=== PATIENT | female | born 1960 | race Asian ===

== ENCOUNTER → 2018-04-14 09:19 | Outpatient (CLI) | payer OTHER, MEDICAID, SELFPAY ==
[2018-04-14 10:29] LABS: Hemoglobin A1C% w Est Avg Glu 7.4 % (4.0-6.0)
== END ==
PROVIDERS: PCP Family Medicine; Visit Provider Internal Medicine Endocrinology, Diabetes & Metabolism
DX: E11.9 Type 2 diabetes mellitus without complications (principal)
CPT/HCPCS: 36415; 83036

== ENCOUNTER 2018-05-14 11:59 | Emergency (ER) | payer OTHER, MEDICAID, SELFPAY ==
[2018-05-14 12:29] LABS: Appearance Urine UA SL CLOUDY; Bilirubin Urine UA NEGATIVE (NEGATIVE); Color Urine UA YELLOW; Glucose Urine UA 3+ g/dL (Normal); Ketones Urine UA NEGATIVE (NEGATIVE); Leukocyte Esterase Urine UA 1+ (NEGATIVE); Nitrite Urine UA Negative (Negative); Occult Blood Urine UA 3+ (Negative); Protein Urine UA NEGATIVE (Negative); Specific Gravity Urine UA <=1.005 (1.000-1.035); Urobilinogen Urine UA 0.2 E.U./dL (0.2); pH Urine UA 6.5 (4.5-8.0)
[2018-05-14 12:40] LABS: RBC Urine 5-10/HPF (0-5/HPF); Squamous Epithelial Cell Urine 0-1 /HPF; WBC Urine 30-100/HPF (0-5/HPF)
[2018-05-14 12:41] LABS: Bacteria Urine Few (2-10); Culture Indicated Urine Specimen Cultured
--- NOTE | 2018-05-14 14:26 | ED.FEMALEGU ---
HPI - Female Genitourinary <GILL Trejo - Last Filed: 05/14/18 22:18> General Chief complaint: Urogenital-Female Stated complaint: painful urination Time Seen by Provider: 05/14/18 14:51 History of Present Illness HPI Narrative: 57-year-old female here for complaint of having having dysuria with cloudy urine for the past 2 days. She denies any flank pain. She denies any fevers. She does report that she felt like she had some chills. No abdominal pain. Positive p.o. intake. No nausea or vomiting. No other concerns or complaints. MD Complaint: dysuria Related Data Home Medications Medication Instructions Recorded Confirmed tiotropium bromide [Spiriva with 1 puff INH QDAY #0 01/11/18 HandiHaler] dapagliflozin [Farxiga] 5 mg PO #0 03/14/18 Previous Rx's Medication Instructions Recorded Glucose: Home Monitor ea Q DAY #1 01/21/17 albuterol sulfate [Proventil HFA] 2 puff INH Q4HP PRN #1 ea 03/12/17 montelukast [Singulair] 10 mg PO QDAY #90 tab 04/23/17 Glucose: Test Strips str Q DAY #30 07/12/17 Lancet: Device ea #100 09/01/17 omeprazole 20 mg PO QDAYP PRN #30 cap 09/01/17 fluticasone [Flonase Allergy 1 spray INTRANASAL QDAY #1 bot 09/03/17 Relief] mometasone-formoterol [Dulera] 2 puff INH BID #1 ea 01/04/18 lisinopril 10 mg PO QDAY #90 tab 01/11/18 simvastatin 10 mg PO HS #90 tab 01/11/18 cyclobenzaprine 5 - 10 mg OR HSP PRN #30 tab 02/08/18 glipizide 10 mg PO BID #180 tab 02/08/18 hydrocodone-acetaminophen 1 tab PO Q6HP PRN #10 tab 03/14/18 metformin 1,000 mg PO BIDCC #180 mg 04/27/18 duloxetine 30 mg capsule,delayed 30 mg PO BID #60 cap 05/10/18 release linagliptin [Tradjenta] 5 mg OR QDAY #90 mg 05/10/18 nitrofurantoin monohyd/m-cryst 100 mg PO Q12H 7 Days cap 05/14/18 Review of Systems <GILL Trejo - Last Filed: 05/14/18 22:18> Constitutional Denies chills, Denies fever(s), Denies lethargy and Denies weakness Eyes Denies change in vision, Denies eye discharge, Denies irritation and Denies loss of vision ENT Ears, Nose, Mouth, and Throat: Denies change in voice, Denies neck pain and Denies sore throat Cardiovascular Denies chest pain, Denies irregular heart rhythm, Denies lightheadedness, Denies palpitations, Denies dyspnea, Denies dyspnea on exertion and Denies orthopnea Respiratory Denies cough, Denies dyspnea, Denies dyspnea on exertion and Denies wheezing Gastrointestinal Gastrointestinal: Denies abdominal pain, Denies change in bowel habits, Denies diarrhea, Denies nausea and Denies vomiting Genitourinary Reports dysuria Musculoskeletal Denies neck pain Integumentary/Breasts Denies pruritus, Denies erythema, Denies rash and Denies wounds Neurologic Denies loss of vision and Denies weakness Endocrine Denies palpitations Allergic/Immunologic Denies wheezing Exam <GILL Trejo - Last Filed: 05/14/18 22:18> Initial Vital Signs Initial Vital Signs: Vital Signs Pulse Rate 88 05/14/18 14:57 Respiratory Rate 16 05/14/18 14:57 Blood Pressure 124/82 H 05/14/18 14:57 Pulse Oximetry 100 05/14/18 14:57 Const General: cooperative and well developed Nutritional Appearance: well nourished Orientation: alert, awake, oriented x3 and not confused [facility] Mouth: oral mucosae normal and moist mucous membranes Eyes Conjunctivae: conjunctivae normal Sclera: sclerae normal Pupils: PERRL EOM: EOM intact bilaterally Resp Effort & Inspection: normal respiratory effort, able to speak in complete sentences, no respiratory distress and no use of accessory muscles Auscultation: clear to auscultation bilaterally, no rales, no rhonchi and no wheezes Cardio Rate: regular rate Rhythm: regular rhythm Heart Sounds: no click, no gallops, no murmurs and no rubs Pulses: normal peripheral pulses GI Inspection: non-distended Palpation: soft, no hepatosplenomegaly, No guarding, No pulsatile mass and No tender Auscultation: normal bowel sounds General: No CVA tenderness Skin General: no rashes or lesions noted, No jaundice and No petechiae <Catie Bojorquez DO - Last Filed: 05/15/18 09:22> Initial Vital Signs Initial Vital Signs: Vital Signs Pulse Rate 88 05/14/18 14:57 Respiratory Rate 16 05/14/18 14:57 Blood Pressure 124/82 H 05/14/18 14:57 Pulse Oximetry 100 05/14/18 14:57 Course <GILL Trejo - Last Filed: 05/14/18 22:18> Orders Ordered: ED Orders 05/14/18 12:00 Urinalysis and Microscopic Stat Urine Culture Stat Vital Signs - 8 hr 05/14/18 14:57 Pulse Rate 88 Respiratory Rate 16 Blood Pressure [Left Arm] 124/82 H Pulse Oximetry 100 <Catie Bojorquez DO - Last Filed: 05/15/18 09:22> Orders Ordered: ED Orders 05/14/18 12:00 Urinalysis and Microscopic Stat Urine Culture Stat Vital Signs - 8 hr 05/14/18 14:57 Pulse Rate 88 Respiratory Rate 16 Blood Pressure [Left Arm] 124/82 H Pulse Oximetry 100 MDM - Female Genitourinary <GILL Trejo - Last Filed: 05/14/18 22:18> Lab Data Lab Results 05/14/18 Range/Units 12:00 Urine Color Yellow Urine Appearance Sl cloudy Urine pH 6.5 (4.5-8.0) Ur Specific [place] <=1.005 (1.000-1.035) Urine Protein Negative (Negative) Urine Glucose (UA) 3+ (Normal) g/dL Urine Ketones Negative (NEGATIVE) Urine Occult Blood 3+ H (Negative) Urine Nitrate Negative (Negative) Urine Bilirubin Negative (NEGATIVE) Urine Urobilinogen 0.2 (0.2) E.U./dL Ur Leukocyte Esterase 1+ H (NEGATIVE) Urine RBC 5-10/hpf H (0-5/HPF) Urine WBC 30-100/hpf H (0-5/HPF) Ur Squamous Epith Cells 0-1 /hpf Urine Bacteria Few (2-10) H (None) Ur Culture Indicated? Specimen cultured Micro UA Comment Not Reportable MDM Narrative Medical decision making narrative: Urinalysis indicates urinary tract infection. She is placed on a Macrobid and also Pyridium. Plenty of fluids. Follow up with primary care provider later this week. For any worsening symptoms return to the emergency room. <Catie Bojorquez DO - Last Filed: 05/15/18 09:22> Lab Data Lab Results 05/14/18 Range/Units 12:00 Urine Color Yellow Urine Appearance Sl cloudy Urine pH 6.5 (4.5-8.0) Ur Specific [place] <=1.005 (1.000-1.035) Urine Protein Negative (Negative) Urine Glucose (UA) 3+ (Normal) g/dL Urine Ketones Negative (NEGATIVE) Urine Occult Blood 3+ H (Negative) Urine Nitrate Negative (Negative) Urine Bilirubin Negative (NEGATIVE) Urine Urobilinogen 0.2 (0.2) E.U./dL Ur Leukocyte Esterase 1+ H (NEGATIVE) Urine RBC 5-10/hpf H (0-5/HPF) Urine WBC 30-100/hpf H (0-5/HPF) Ur Squamous Epith Cells 0-1 /hpf Urine Bacteria Few (2-10) H (None) Ur Culture Indicated? Specimen cultured Micro UA Comment Not Reportable Discharge Plan Departure Patient Disposition: Home, Self-Care Clinical Impression: Urinary tract infection Discharge Date/Time: 05/14/18 15:01 Interventions: ED Discharge Assessment Last Done: 05/14/18 15:01 Instructions: DI for Urinary Tract Infection (UTI) Activity Restrictions/Additional Instructions: Urinalysis indicates urinary tract infection. You have been placed on antibiotic called Macrobid use as directed. You have also been placed on Pyridium to help with discomfort with urination use as directed. Be advised it will make your urine orange. Plenty of fluids. Follow up with primary care provider. Return emergency room for any worsening symptoms. Prescriptions: New nitrofurantoin monohyd/m-cryst 100 mg capsule 100 mg PO Q12H 7 Days RF: 0 No Action Glucose: Home Monitor Q DAY Qty: 1 RF: 0 albuterol sulfate [Proventil HFA] 90 MCG/PUFF HFA aerosol inhaler 2 puff INH Q4HP PRNQty: 1 RF: 2 montelukast [Singulair] 10 MG tablet 10 mg PO QDAY Qty: 90 RF: 2 Glucose: Test Strips Q DAY Qty: 30 RF: 9 omeprazole 20 MG capsule,delayed release(DR/EC) 20 mg PO QDAYP PRNQty: 30 RF: 1 Lancet: Device Qty: 100 RF: 12 fluticasone [Flonase Allergy Relief] 9.9 ML spray,suspension 1 spray Intranasal QDAY Qty: 1 RF: 0 mometasone-formoterol [Dulera] 200 MCG/5 MCG HFA aerosol inhaler 2 puff INH BID Qty: 1 RF: 1 tiotropium bromide [Spiriva with HandiHaler] 18 MCG capsule, w/inhalation device 1 puff INH QDAY Qty: 0 RF: 0 lisinopril 10 MG tablet 10 mg PO QDAY Qty: 90 RF: 2 simvastatin 10 MG tablet 10 mg PO HS Qty: 90 RF: 2 cyclobenzaprine 10 MG tablet 5 - 10 mg OR HSP PRNQty: 30 RF: 0 glipizide 10 MG tablet 10 mg PO BID Qty: 180 RF: 4 dapagliflozin [Farxiga] 5 MG tablet 5 mg PO Qty: 0 RF: 0 hydrocodone-acetaminophen 5 MG/325 MG tablet 1 tab PO Q6HP PRNQty: 10 RF: 0 metformin 1,000 mg tablet 1,000 mg PO BIDCC Qty: 180 RF: 2 duloxetine 30 mg capsule,delayed release(DR/EC) 30 mg PO BID Qty: 60 RF: 0 linagliptin [Tradjenta] 5 mg tablet 5 mg OR QDAY Qty: 90 RF: 2 Referrals: Rachel Barajas DO [Primary Care Provider] - <Catie Bojorquez DO - Last Filed: 05/15/18 09:22> Cosign ED Attending Trueature Attestation: I was immediately available in the department for consultation. Documentation has been reviewed. I agree with assessment and plan.
[2018-05-14 14:57] VITALS: BP 124/82; PULSE 88; RESP 16; O2SAT 100
== END 2018-05-14 15:01 | disposition home or self-care (01) ==
PROVIDERS: Emergency Provider Nurse Practitioner Family; Family Provider Family Medicine; PCP Family Medicine
DX: N39.0 Urinary tract infection, site not specified (principal)
CPT/HCPCS: 81001; 87086; 99282

== ENCOUNTER 2018-05-27 11:45 | Outpatient (RCR) | payer OTHER, MEDICAID, SELFPAY ==
--- NOTE | 2018-04-06 15:14 | PT.OTRE ---
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) Difficulty in walking, not elsewhere classified (04/06/18) Surgical History Status post breast biopsy Provider Visit Care Team Role Provider Type Rachel Barajas DO Family Provider Physician Primary Care Provider Specialty: Family Practice Address: [address] [place] [address], [id number] Email: [email or web address] Jurgen Howard DPM Attending Provider Non-Staff Specialty: Podiatry Address: [address] [place] [address], [phone] Email: Physical Therapy Re-Evaluation PT-OP-A Visit Information Start: 04/06/18 14:56 Freq: Status: Active Protocol: Document 04/06/18 14:59 TMS (Rec: 04/06/18 15:14 TMS [email or web address]) Out-Patient Physical Therapy Visit Information Visit Information Visit Type Re-Evaluation Visit Start Time 11:00 Visit Stop Time 11:45 Total Visit Minutes 45 Visit Number Number of MAIL CARRIER Visits 0 PT-OP-C Subjective Start: 04/06/18 14:56 Freq: Status: Active Protocol: Document 04/06/18 14:59 TMS (Rec: 04/06/18 15:14 TMS [email or web address]) OP-PT Subjective Patient Comments Patient Comments Pt. reports she's not having right foot pain because she doesn't walk very much, main complaint is left shoulder pain. PT-OP-T Assessment and Plan Start: 04/06/18 14:56 Freq: Status: Active Protocol: Document 04/06/18 14:59 TMS (Rec: 04/06/18 15:14 TMS [email or web address]) Physical Therapy Assessment Assessment Summary Assessment Pt. tolerated lower extremity exercises well, kept left arm guarded during treatment.
--- NOTE | 2018-04-07 11:27 | PT.OTN ---
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) Difficulty in walking, not elsewhere classified (04/06/18) Physical Therapy Treatment Note PT-OP-A Visit Information Start: 04/06/18 14:56 Freq: Status: Active Protocol: Document 04/06/18 14:59 TMS (Rec: 04/06/18 15:14 TMS [email or web address]) Out-Patient Physical Therapy Visit Information Visit Information Visit Type Re-Evaluation Visit Start Time 11:00 Visit Stop Time 11:45 Total Visit Minutes 45 Visit Number Number of EMERY WHEEL MOLDER Visits 0 PT-OP-C Subjective Start: 04/06/18 14:56 Freq: Status: Active Protocol: Document 04/06/18 14:59 TMS (Rec: 04/06/18 15:14 TMS [email or web address]) OP-PT Subjective Patient Comments Patient Comments Pt. reports she's not having right foot pain because she doesn't walk very much, main complaint is left shoulder pain. PT-OP-S Aquatic Treatment Start: 04/06/18 14:56 Freq: Status: Active Protocol: Document 04/06/18 14:59 TMS (Rec: 04/06/18 15:14 TMS [email or web address]) Aquatics Treatment Pool Entry/Exit Pool Entry/Exit Method Stairs Assistance Independent Water Walking Marching Water Level Waist Level Walking Equipment Resistance Fins Level of Assistance Standby Assistance Sideways Water Level Waist Level Walking Equipment Resistance Fins Level of Assistance Standby Assistance Forwards Water Level Waist Level Walking Equipment Resistance Fins Level of Assistance Standby Assistance Lower Extremity Exercises 5 Details Hip Circles Body Position Standing Water Level Waist Level Equipment Resistance Fins Reps/Duration x15 4 Details Hip Flexion Body Position Standing Water Level Waist Level Reps/Duration x15 3 Details Hip Abduction Body Position Standing Water Level Waist Level Equipment Resistance Fins Reps/Duration x15 2 Details Squats Body Position Standing Water Level Waist Level Equipment Resistance Fins Reps/Duration x15 1 Details Heel/toe raises Body Position Standing Equipment Resistance Fins Reps/Duration x15 Upper Extremity Exercises 1 Details Shoulder shrugs/rolls Body Position Standing Embarrass Activities Embarrass Activities Bicycle Equipment Belt Duration 15 minutes PT-OP-T Assessment and Plan Start: 04/06/18 14:56 Freq: Status: Active Protocol: Document 04/06/18 14:59 TMS (Rec: 04/06/18 15:14 [facility] [email or web address]) Physical Therapy Assessment Assessment Summary Assessment Pt. tolerated lower extremity exercises well, kept left arm guarded during treatment.
--- NOTE | 2018-04-08 09:48 | PT.OPPOC ---
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) Difficulty in walking, not elsewhere classified (04/06/18) Provider Visit Care Team Role Provider Type Rachel Barajas DO Family Provider Physician Primary Care Provider Specialty: Family Practice Address: [address] [place] [address], [phone] Email: [email or web address] Jurgen Howard DPM Attending Provider Non-Staff Specialty: Podiatry Address: [address] [place] [address], [phone] Email: Plan Of Care PT-OP-T Assessment and Plan Start: 04/06/18 14:56 Freq: Status: Active Protocol: Document 04/08/18 09:37 SAK (Rec: 04/08/18 09:48 SAK [id number]) Physical Therapy Assessment Rehab Potential Rehabilitation Potential Good Evaluation Complexity Number of Personal Factors/Comorbidities 3 or More Number of Body Systems Impaired 3 Clinical Presentation at Evaluation Evolving Impairments Impairments Functional Activities Gait Pain ROM Strength Other Impairments 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 Goals Five Impairment functional limiting shoulder pain Short Term Goal (STG) evaluate left shoulder; begin treatment as indicated STG Duration 2 wks Certified Residential Medication Aide Goal (LTG) Patient to return to full functional use of left UE with minimal to no pain LTG Duration 8 wks Four Impairment Functional mobility: LEFS Short Term Goal (STG) Improve LEFS by 10% STG Duration 4 wks Certified Residential Medication Aide Goal (LTG) Improve LEFS to 75% LTG Duration 8 wks Three Impairment Antalgic gait Short Term Goal (STG) Patient able to ambulate with minimal to no limp using device as indicated STG Duration 4 wks Certified Residential Medication Aide Goal (LTG) Patient able to ambulate without limp LTG Duration 8 wks Two Impairment decreased flexibility in hamstrings, gastrocnemius, soleus, & plantar fasci Short Term Goal (STG) Improve flexibility in all above areas to minimal deficits STG Duration 4 wks Residential Goal (LTG) Patient to be independent with HEP for flexibility LTG Duration 8 wks One Impairment pain bilateral feet limiting standing, walking, usual activities Short Term Goal (STG) decrease pain 50% STG Duration 4 wks Residential Goal (LTG) Patient able to resume normal activities with minimal to no incrase in pain. LTG Duration 8 wks. Progress Towards Goals Progress Towards Goals Progressing Toward Goals Assessment Summary Assessment Patient appears to benefiting most from aquatic therapy for foot pain and mobility limitations. Feel aquatic therapy may be appropriate also for patient's shoulder pain and dysfunction, but will assess at next visit. Physical Therapy Plan Frequency and Duration Frequency of Treatment 2x/Week Duration of Treatment 8 Plan of Care Start Date 04/06/18 Plan of Care End Date 06/01/18 Therapeutic Interventions Therapeutic Interventions Aquatic Therapy Gait Training Home Exercise Program Manual Therapy Patient/Caregiver Education Self-Care/Home Management Therapeutic Activities Therapeutic Exercises Modalities Cold Pack/Ice Massage Electric Stimulation Iontophoresis Ultrasound Next Visit Focus/Plan Next Visit Plan Evaluate left shoulder pain and initiate treatment as indicated. Continue aquatic PT for foot pain Plan of Care Dates Plan of Care Start Date 04/06/18 Plan of Care End Date 06/01/18 Please Sign and Return: I have reviewed this Plan of Care and certify that the skilled therapy services above are required to meet the patient???s needs. Physician Signature Date Printed Name and Credentials
--- NOTE | 2018-04-12 13:01 | PT.OTN ---
Current Diagnoses Stiffness of unspecified joint, not elsewhere classified (04/11/18) Plantar fascial fibromatosis (04/11/18) Difficulty in walking, not elsewhere classified (04/11/18) Physical Therapy Treatment Note PT-OP-A Visit Information Start: 04/06/18 14:56 Freq: Status: Active Protocol: Document 04/12/18 10:21 SAK (Rec: 04/12/18 10:30 [facility] [id number]) Out-Patient Physical Therapy Visit Information Visit Information Visit Type Treatment Note Visit Start Time 11:00 Visit Stop Time 11:45 Total Visit Minutes 45 Visit Number Number of STOCK PLAN ADMINISTRATOR Visits 0 PT-OP-C Subjective Start: 04/06/18 14:56 Freq: Status: Active Protocol: Document 04/11/18 11:00 SAK (Rec: 04/12/18 10:30 [facility] [id number]) OP-PT Subjective Patient Comments Patient Comments Reports difficulty doing usual activities due to left shoulder pain, is getting a prescription from physician for evaluation and treatment of left shoulder pain. OP-PT Pain Assessment Location Left Shoulder Intensity 8 Scale Used Numeric (1 - 10) Description Aching Pinching Sharp Shooting Pain Aggravating Factors ADL's Activity Pain Alleviating Factors None Pain Behaviors Pain Behaviors Facial Grimacing Guarding [place] PT-OP-E Functional Tests Start: 04/06/18 14:56 Freq: Status: Active Protocol: Document 04/11/18 11:00 SAK (Rec: 04/12/18 10:30 [facility] [id number]) Functional Tests Apley's Scratch Test Action 1: The subject is instructed to touch the opposite shoulder with his/her hand. This motion checks Glenohumeral adduction, internal rotation , horizontal adduction and scapular protraction Action 2: The subject is instructed to place his/her arm overhead and reach behind the neck to touch his/her upper back. This motion checks Glenohumeral abduction, external rotation and scapular upward rotation and elevation. Action 3: The subject puts his/her hand on the lower back and reaches upward as far as possible. This motion checks glenohumeral adduction, internal rotation and scapular retraction with downward rotation Action 1- Left front of shoulder Action 1- Right back of shoulder Action 2- Left unable Action 2- Right T2 Action 3- Left buttock Action 3- Right T7 PT-OP-K Range of Motion Start: 04/06/18 14:56 Freq: Status: Active Protocol: Document 04/11/18 11:00 SAK (Rec: 04/12/18 10:30 [facility] [id number]) Cervical Spine Range of Motion Cervical Spine Active ROM Limitations Pain Comments moderately limited all motions Shoulder Goniometric Range of Motion Shoulder Measured in Degrees Left Shoulder ROM WFL No Flexion 85 Extension 5 Abduction 55 External Rotation at 45 degrees 20 Abduction Internal Rotation 15 Internal Rotation Behind Back (text) to buttock Right Shoulder ROM WFL Yes Shoulder ROM Limitations Shoulder ROM Limitations Pain Elbow/Forearm Range of Motion Elbow/Forearm Measured in Degrees Active Elbow/Forearm ROM WFL Yes PT-OP-M Strength Start: 04/06/18 14:56 Freq: Status: Active Protocol: Document 04/11/18 11:00 SAK (Rec: 04/12/18 12:01 [facility] [id number]) Shoulder Strength Shoulder Manual Muscle Testing Left Reason Not Measured Pain Right Reason Not Measured WFL PT-OP-S Aquatic Treatment Start: 04/06/18 14:56 Freq: Status: Active Protocol: Document 04/11/18 11:02 SAK (Rec: 04/12/18 12:04 [facility] [id number]) Aquatics Treatment Pool Entry/Exit Pool Entry/Exit Method Stairs Assistance Independent Water Walking Backwards Water Level Chest Level Comments with gentle reverse breastroke UE's Marching Water Level Chest Level Comments with gentle breastroke UE's Sideways Water Level Chest Level Comments with gentle shoulder ab/ad Forwards Water Level Chest Level Comments with gentle breastroke UE's Upper Extremity Exercises 5 Details shoulder flex/ext Water Level Chest Level Reps/Duration 10x 4 Details shoulder IR/ER Water Level Chest Level Reps/Duration 10x 3 Details UE circles Water Level Chest Level Reps/Duration 10x 2 Details shoulder hor ab/ad 1 Details Shoulder shrugs/rolls Body Position Standing Reps/Duration 10x Manual Techniques Bad Ragaz supine with yellow neck float, LE floats for gentle Aquatic Massage supine with yellow neck float, LE floats to left GH and scapulothoracic region PT-OP-T Assessment and Plan Start: 04/06/18 14:56 Freq: Status: Active Protocol: Document 04/11/18 11:00 SAK (Rec: 04/12/18 13:01 SAK [id number]) Physical Therapy Assessment Rehab Potential Rehabilitation Potential Good Impairments Impairments Functional Activities Pain ROM Assessment Summary Assessment Patient with fair kenneth for UE aquatic ex; needed frquent cues to ex in pain-free ROM and intensity. Good tolerance for manual aquatiac techniques. Should continue to benefit from aquatic PT for both LE pain and left shoulder pain. May want to also do land-based PT for left shoulder pending results from aquatic PT> Physical Therapy Plan Frequency and Duration Frequency of Treatment 2x/Week Duration of Treatment 8 Plan of Care Start Date 04/06/18 Plan of Care End Date 06/01/18 Therapeutic Interventions Therapeutic Interventions Aquatic Therapy Gait Training Home Exercise Program Manual Therapy Patient/Caregiver Education Self-Care/Home Management Therapeutic Activities Therapeutic Exercises Modalities Cold Pack/Ice Massage Electric Stimulation Iontophoresis Ultrasound Next Visit Focus/Plan Next Visit Plan Continue aquatic PT with increased emphasis on left shoulder.
--- NOTE | 2018-04-21 11:59 | PT.OTN ---
Current Diagnoses Stiffness of unspecified joint, not elsewhere classified (04/18/18) Plantar fascial fibromatosis (04/18/18) Difficulty in walking, not elsewhere classified (04/18/18) Physical Therapy Treatment Note PT-OP-A Visit Information Start: 04/06/18 14:56 Freq: Status: Active Protocol: Document 04/18/18 11:00 [facility] (Rec: 04/21/18 11:59 [facility] [id number]) Out-Patient Physical Therapy Visit Information Visit Information Visit Type Treatment Note Visit Start Time 11:00 Visit Stop Time 11:45 Total Visit Minutes 45 Visit Number Number of CURATOR H[employer]IC[employer] MUSEUM Visits 0 PT-OP-C Subjective Start: 04/06/18 14:56 Freq: Status: Active Protocol: Document 04/18/18 11:00 SAK (Rec: 04/21/18 11:59 [facility] [id number]) OP-PT Subjective Patient Comments Patient Comments shoulder pain persists, sl decreased after last session. Reports aquatic PT continues to be helpful for feet. PT-OP-E Functional Tests Start: 04/06/18 14:56 Freq: Status: Active Protocol: Document 04/11/18 11:00 [facility] (Rec: 04/12/18 10:30 [facility] [id number]) Functional Tests Apley's Scratch Test Action 1: The subject is instructed to touch the opposite shoulder with his/her hand. This motion checks Glenohumeral adduction, internal rotation , horizontal adduction and scapular protraction Action 2: The subject is instructed to place his/her arm overhead and reach behind the neck to touch his/her upper back. This motion checks Glenohumeral abduction, external rotation and scapular upward rotation and elevation. Action 3: The subject puts his/her hand on the lower back and reaches upward as far as possible. This motion checks glenohumeral adduction, internal rotation and scapular retraction with downward rotation Action 1- Left front of shoulder Action 1- Right back of shoulder Action 2- Left unable Action 2- Right T2 Action 3- Left buttock Action 3- Right T7 PT-OP-K Range of Motion Start: 04/06/18 14:56 Freq: Status: Active Protocol: Document 04/11/18 11:00 SAK (Rec: 04/12/18 10:30 [facility] [id number]) Cervical Spine Range of Motion Cervical Spine Active ROM Limitations Pain Comments moderately limited all motions Shoulder Goniometric Range of Motion Shoulder Measured in Degrees Left Shoulder ROM WFL No Flexion 85 Extension 5 Abduction 55 External Rotation at 45 degrees 20 Abduction Internal Rotation 15 Internal Rotation Behind Back (text) to buttock Right Shoulder ROM WFL Yes Shoulder ROM Limitations Shoulder ROM Limitations Pain Elbow/Forearm Range of Motion Elbow/Forearm Measured in Degrees Active Elbow/Forearm ROM WFL Yes PT-OP-M Strength Start: 04/06/18 14:56 Freq: Status: Active Protocol: Document 04/11/18 11:00 [facility] (Rec: 04/12/18 12:01 [facility] [id number]) Shoulder Strength Shoulder Manual Muscle Testing Left Reason Not Measured Pain Right Reason Not Measured WFL PT-OP-S Aquatic Treatment Start: 04/06/18 14:56 Freq: Status: Active Protocol: Document 04/18/18 11:00 [facility] (Rec: 04/21/18 11:59 [facility] [id number]) Aquatics Treatment Pool Entry/Exit Pool Entry/Exit Method Stairs Assistance Independent Water Walking Backwards Water Level Chest Level Comments with gentle reverse breastroke UE's Marching Water Level Chest Level Comments with gentle breastroke UE's Sideways Water Level Chest Level Comments with gentle shoulder ab/ad Forwards Water Level Chest Level Comments with gentle breastroke UE's Upper Extremity Exercises 6 Details scap squeeze Body Position Standing Water Level Neck Level Reps/Duration 10x 3 Details UE circles Water Level Chest Level Reps/Duration 10x 2 Details shoulder hor ab/ad 1 Details Shoulder shrugs/rolls Body Position Standing Reps/Duration 10x Spinal Exercises 1 Details upper trap stretch Body Position Standing Reps/Duration 2 [place] Activities [place] Activities Bicycle Other Activities gentle UE use as tolerated Equipment belt Duration 5 Manual Techniques Bad Ragaz supine with yellow neck float, LE floats for gentle Aquatic Massage supine with yellow neck float, LE floats to left GH and scapulothoracic region PT-OP-T Assessment and Plan Start: 04/06/18 14:56 Freq: Status: Active Protocol: Document 04/18/18 11:00 [facility] (Rec: 04/21/18 11:59 [facility] [id number]) Physical Therapy Assessment Assessment Summary Assessment Frequent postural cues and cues to prevent guarding and compensatory movement left UE. Physical Therapy Plan Next Visit Focus/Plan Next Visit Plan Continue PT to address left shoulder pain and dysfunction with aquatic exercise and manual techniques Please Sign and Return: I have reviewed this Plan of Care and certify that the skilled therapy services above are required to meet the patient???s needs. Physician Signature Date Printed Name and Credentials Clinical Instructor Signature Printed Name and Credentials
--- NOTE | 2018-05-09 14:46 | PT.OTN ---
Current Diagnoses Stiffness of unspecified joint, not elsewhere classified (05/09/18) Plantar fascial fibromatosis (05/09/18) Difficulty in walking, not elsewhere classified (05/09/18) Physical Therapy Treatment Note PT-OP-A Visit Information Start: 04/06/18 14:56 Freq: Status: Active Protocol: Document 05/09/18 14:21 [facility] (Rec: 05/09/18 14:46 [facility] [email or web address]) Out-Patient Physical Therapy Visit Information Visit Information Visit Type Treatment Note Visit Start Time 11:00 Visit Stop Time 11:45 Total Visit Minutes 45 Visit Number Number of CONVENTION SERVICES MANAGER Visits 1 PT-OP-C Subjective Start: 04/06/18 14:56 Freq: Status: Active Protocol: Document 05/09/18 14:21 [facility] (Rec: 05/09/18 14:46 [facility] [email or web address]) OP-PT Subjective Patient Comments Patient Comments Pt states aquatic therapy is really helping her and wishes she could come more often. PT-OP-E Functional Tests Start: 04/06/18 14:56 Freq: Status: Active Protocol: Document 04/11/18 11:00 SAK (Rec: 04/12/18 10:30 [facility] [id number]) Functional Tests Apley's Scratch Test Action 1: The subject is instructed to touch the opposite shoulder with his/her hand. This motion checks Glenohumeral adduction, internal rotation , horizontal adduction and scapular protraction Action 2: The subject is instructed to place his/her arm overhead and reach behind the neck to touch his/her upper back. This motion checks Glenohumeral abduction, external rotation and scapular upward rotation and elevation. Action 3: The subject puts his/her hand on the lower back and reaches upward as far as possible. This motion checks glenohumeral adduction, internal rotation and scapular retraction with downward rotation Action 1- Left front of shoulder Action 1- Right back of shoulder Action 2- Left unable Action 2- Right T2 Action 3- Left buttock Action 3- Right T7 PT-OP-K Range of Motion Start: 04/06/18 14:56 Freq: Status: Active Protocol: Document 04/11/18 11:00 SAK (Rec: 04/12/18 10:30 [facility] [id number]) Cervical Spine Range of Motion Cervical Spine Active ROM Limitations Pain Comments moderately limited all motions Shoulder Goniometric Range of Motion Shoulder Measured in Degrees Left Shoulder ROM WFL No Flexion 85 Extension 5 Abduction 55 External Rotation at 45 degrees 20 Abduction Internal Rotation 15 Internal Rotation Behind Back (text) to buttock Right Shoulder ROM WFL Yes Shoulder ROM Limitations Shoulder ROM Limitations Pain Elbow/Forearm Range of Motion Elbow/Forearm Measured in Degrees Active Elbow/Forearm ROM WFL Yes PT-OP-M Strength Start: 04/06/18 14:56 Freq: Status: Active Protocol: Document 04/11/18 11:00 SAK (Rec: 04/12/18 12:01 SAK [id number]) Shoulder Strength Shoulder Manual Muscle Testing Left Reason Not Measured Pain Right Reason Not Measured WFL PT-OP-S Aquatic Treatment Start: 04/06/18 14:56 Freq: Status: Active Protocol: Document 05/09/18 14:21 CLB (Rec: 05/09/18 14:46 [facility] [email or web address]) Aquatics Treatment Pool Entry/Exit Pool Entry/Exit Method Stairs Assistance Independent Water Walking Backwards Water Level Chest Level Comments with gentle reverse breaststroke UE's Marching Water Level Chest Level Comments with gentle breaststroke UE's Sideways Water Level Chest Level Comments with gentle shoulder ab/ad Forwards Water Level Chest Level Comments with gentle breaststroke UE's Upper Extremity Exercises 6 Details scap squeeze Body Position Standing Water Level Neck Level Reps/Duration 10x 5 Details shoulder flex/ext Water Level Chest Level Reps/Duration 10x 4 Details shoulder IR/ER Water Level Chest Level Reps/Duration 10x 3 Details UE circles Water Level Chest Level Reps/Duration 10x 2 Details shoulder hor ab/ad Water Level Neck Level Reps/Duration 10x 1 Details Shoulder shrugs/rolls Body Position Standing Reps/Duration 10x Spinal Exercises 1 Details upper trap stretch Body Position Standing Reps/Duration 2 [place] Activities [place] Activities Bicycle Other Activities gentle UE use as tolerated Equipment noodle Duration 15 PT-OP-T Assessment and Plan Start: 04/06/18 14:56 Freq: Status: Active Protocol: Document 05/09/18 14:21 [facility]B (Rec: 05/09/18 14:46 [facility] [id number]) Physical Therapy Assessment Assessment Summary Assessment Pt needs cues for posture and cues to prevent shoulder shrug during UE ther ex. Physical Therapy Plan Frequency and Duration Frequency of Treatment 1x/Week Duration of Treatment 45 Please Sign and Return: I have reviewed this Plan of Care and certify that the skilled therapy services above are required to meet the patient?s needs. Physician Signature Date Printed Name and Credentials Clinical Instructor Signature Printed Name and Credentials
--- NOTE | 2018-05-13 15:01 | PT.OTN ---
Current Diagnoses Stiffness of unspecified joint, not elsewhere classified (05/13/18) Plantar fascial fibromatosis (05/13/18) Difficulty in walking, not elsewhere classified (05/13/18) Physical Therapy Treatment Note PT-OP-A Visit Information Start: 04/06/18 14:56 Freq: Status: Active Protocol: Document 05/13/18 14:52 TMS (Rec: 05/13/18 15:01 TMS [email or web address]) Out-Patient Physical Therapy Visit Information Visit Information Visit Type Treatment Note Visit Start Time 11:45 Visit Stop Time 12:15 Total Visit Minutes 30 Visit Number Number of CLAY ARTIST Visits 2 PT-OP-C Subjective Start: 04/06/18 14:56 Freq: Status: Active Protocol: Document 05/13/18 14:52 TMS (Rec: 05/13/18 15:01 TMS [email or web address]) OP-PT Subjective Patient Comments Patient Comments Pt. arrived for appointment 45 minutes early, had appointment time wrong. States aquatics has helped, left shoulder is less painful. States it's still painful to walk. PT-OP-E Functional Tests Start: 04/06/18 14:56 Freq: Status: Active Protocol: Document 04/11/18 11:00 SAK (Rec: 04/12/18 10:30 [facility] [id number]) Functional Tests Apley's Scratch Test Action 1: The subject is instructed to touch the opposite shoulder with his/her hand. This motion checks Glenohumeral adduction, internal rotation , horizontal adduction and scapular protraction Action 2: The subject is instructed to place his/her arm overhead and reach behind the neck to touch his/her upper back. This motion checks Glenohumeral abduction, external rotation and scapular upward rotation and elevation. Action 3: The subject puts his/her hand on the lower back and reaches upward as far as possible. This motion checks glenohumeral adduction, internal rotation and scapular retraction with downward rotation Action 1- Left front of shoulder Action 1- Right back of shoulder Action 2- Left unable Action 2- Right T2 Action 3- Left buttock Action 3- Right T7 PT-OP-K Range of Motion Start: 04/06/18 14:56 Freq: Status: Active Protocol: Document 04/11/18 11:00 SAK (Rec: 04/12/18 10:30 [facility] [id number]) Cervical Spine Range of Motion Cervical Spine Active ROM Limitations Pain Comments moderately limited all motions Shoulder Goniometric Range of Motion Shoulder Measured in Degrees Left Shoulder ROM WFL No Flexion 85 Extension 5 Abduction 55 External Rotation at 45 degrees 20 Abduction Internal Rotation 15 Internal Rotation Behind Back (text) to buttock Right Shoulder ROM WFL Yes Shoulder ROM Limitations Shoulder ROM Limitations Pain Elbow/Forearm Range of Motion Elbow/Forearm Measured in Degrees Active Elbow/Forearm ROM WFL Yes PT-OP-M Strength Start: 04/06/18 14:56 Freq: Status: Active Protocol: Document 04/11/18 11:00 SAK (Rec: 04/12/18 12:01 [facility] [id number]) Shoulder Strength Shoulder Manual Muscle Testing Left Reason Not Measured Pain Right Reason Not Measured WFL PT-OP-S Aquatic Treatment Start: 04/06/18 14:56 Freq: Status: Active Protocol: Document 05/13/18 14:52 TMS (Rec: 05/13/18 15:01 TMS [email or web address]) Aquatics Treatment Pool Entry/Exit Pool Entry/Exit Method Stairs Assistance Independent Water Walking [place] March Water Level Chest Level Walking Equipment Resistance Fins Marching Water Level Chest Level Walking Equipment Resistance Fins Comments with gentle breastroke UE's Sideways Water Level Chest Level Comments with gentle shoulder ab/ad Lower Extremity Exercises 5 Details Heel/toe Body Position Standing Water Level Chest Level Equipment Resistance Fins Reps/Duration x 15 reps 4 Details Squats Body Position Standing Water Level Chest Level Equipment Resistance Fins Reps/Duration x 15 reps 3 Details Hip flexio/extension Body Position Standing Water Level Chest Level Equipment Resistance Fins 2 Details Hip Abduction Body Position Standing Water Level Chest Level Equipment Resistance Fins [place] Activities [place] Activities Bicycle Other Activities gentle UE use as tolerated Equipment noodle Duration 15 PT-OP-T Assessment and Plan Start: 04/06/18 14:56 Freq: Status: Active Protocol: Document 05/13/18 14:52 TMS (Rec: 05/13/18 15:01 TMS [email or web address]) Physical Therapy Assessment Assessment Summary Assessment Treatment limited to 30 minutes secondary had already been in water for 45 minutes. Pt. did U.E. exercises independently before appointment started. Physical Therapy Plan Frequency and Duration Frequency of Treatment 1x/Week Next Visit Focus/Plan Next Visit Plan Continue PT to address left shoulder pain and dysfunction with aquatic exercise and manual techniques Please Sign and Return: I have reviewed this Plan of Care and certify that the skilled therapy services above are required to meet the patient?s needs. Physician Signature Date Printed Name and Credentials Clinical Instructor Signature Printed Name and Credentials
--- NOTE | 2018-05-16 16:25 | PT.OTN ---
Current Diagnoses Stiffness of unspecified joint, not elsewhere classified (05/16/18) Plantar fascial fibromatosis (05/16/18) Difficulty in walking, not elsewhere classified (05/16/18) Physical Therapy Treatment Note PT-OP-A Visit Information Start: 04/06/18 14:56 Freq: Status: Active Protocol: Document 05/16/18 16:13 CLB (Rec: 05/16/18 16:24 CLB [email or web address]) Out-Patient Physical Therapy Visit Information Visit Information Visit Start Time 13:00 Visit Stop Time 13:45 Total Visit Minutes 45 Visit Number 23 Number of RAILS DEVELOPER Visits 3 PT-OP-C Subjective Start: 04/06/18 14:56 Freq: Status: Active Protocol: Document 05/16/18 16:13 CLB (Rec: 05/16/18 16:24 CLB [email or web address]) OP-PT Subjective Patient Comments Patient Comments Pt stated she felt a little dizzy and nauseous today due to antibiotic she is taking. PT-OP-E Functional Tests Start: 04/06/18 14:56 Freq: Status: Active Protocol: Document 04/11/18 11:00 SAK (Rec: 04/12/18 10:30 SAK [id number]) Functional Tests Apley's Scratch Test Action 1: The subject is instructed to touch the opposite shoulder with his/her hand. This motion checks Glenohumeral adduction, internal rotation , horizontal adduction and scapular protraction Action 2: The subject is instructed to place his/her arm overhead and reach behind the neck to touch his/her upper back. This motion checks Glenohumeral abduction, external rotation and scapular upward rotation and elevation. Action 3: The subject puts his/her hand on the lower back and reaches upward as far as possible. This motion checks glenohumeral adduction, internal rotation and scapular retraction with downward rotation Action 1- Left front of shoulder Action 1- Right back of shoulder Action 2- Left unable Action 2- Right T2 Action 3- Left buttock Action 3- Right T7 PT-OP-K Range of Motion Start: 04/06/18 14:56 Freq: Status: Active Protocol: Document 04/11/18 11:00 SAK (Rec: 04/12/18 10:30 SAK [id number]) Cervical Spine Range of Motion Cervical Spine Active ROM Limitations Pain Comments moderately limited all motions Shoulder Goniometric Range of Motion Shoulder Measured in Degrees Left Shoulder ROM WFL No Flexion 85 Extension 5 Abduction 55 External Rotation at 45 degrees 20 Abduction Internal Rotation 15 Internal Rotation Behind Back (text) to buttock Right Shoulder ROM WFL Yes Shoulder ROM Limitations Shoulder ROM Limitations Pain Elbow/Forearm Range of Motion Elbow/Forearm Measured in Degrees Active Elbow/Forearm ROM WFL Yes PT-OP-M Strength Start: 04/06/18 14:56 Freq: Status: Active Protocol: Document 04/11/18 11:00 SAK (Rec: 04/12/18 12:01 SAK [id number]) Shoulder Strength Shoulder Manual Muscle Testing Left Reason Not Measured Pain Right Reason Not Measured WFL PT-OP-S Aquatic Treatment Start: 04/06/18 14:56 Freq: Status: Active Protocol: Document 05/16/18 16:13 CLB (Rec: 05/16/18 16:24 CLB [email or web address]) Aquatics Treatment Pool Entry/Exit Pool Entry/Exit Method Stairs Assistance Independent Water Walking Backwards Water Level Chest Level Comments with gentle reverse breastroke UE's Marching Water Level Chest Level Walking Equipment Resistance Fins Sideways Water Level Chest Level Walking Equipment Resistance Fins Comments with gentle shoulder ab/ad Forwards Water Level Chest Level Walking Equipment Resistance Fins Comments with gentle breastroke UE's Lower Extremity Exercises 5 Details Heel/toe Body Position Standing Water Level Chest Level Equipment Resistance Fins Reps/Duration x 15 reps 4 Details Squats Body Position Standing Water Level Chest Level Equipment Resistance Fins Reps/Duration x 15 reps 3 Details Hip flexio/extension Body Position Standing Water Level Chest Level Equipment Resistance Fins 2 Details Hip Abduction Body Position Standing Water Level Chest Level Equipment Resistance Fins Upper Extremity Exercises 5 Details shoulder flex/ext Body Position Standing Water Level Neck Level Equipment open paddle Reps/Duration 10x 2 Details shoulder hor ab/ad Body Position Standing Water Level Neck Level Equipment open paddle Reps/Duration 10x [place] Activities [place] Activities Bicycle Other Activities gentle UE use as tolerated Equipment noodle Duration 15 PT-OP-T Assessment and Plan Start: 04/06/18 14:56 Freq: Status: Active Protocol: Document 05/16/18 16:13 CLB (Rec: 05/16/18 16:24 CLB [email or web address]) Physical Therapy Assessment Assessment Summary Assessment Pt tolerated therapy well today, pt continues to need cues for posture and to prevent gaurding and compensation in shoulders. Physical Therapy Plan Frequency and Duration Frequency of Treatment 1x/Week Duration of Treatment 45 Next Visit Focus/Plan Next Visit Plan Continue PT to address left shoulder pain and dysfunction with aquatic exercise and manual techniques
--- NOTE | 2018-05-23 15:50 | PT.OTN ---
Current Diagnoses Stiffness of unspecified joint, not elsewhere classified (05/23/18) Plantar fascial fibromatosis (05/23/18) Difficulty in walking, not elsewhere classified (05/23/18) Physical Therapy Treatment Note PT-OP-A Visit Information Start: 04/06/18 14:56 Freq: Status: Active Protocol: Document 05/23/18 12:15 CLB (Rec: 05/23/18 15:50 CLB [email or web address]) Out-Patient Physical Therapy Visit Information Visit Information Visit Start Time 12:15 Visit Stop Time 13:00 Total Visit Minutes 45 Visit Number 24 Number of GLAZE HANDLER Visits 4 PT-OP-C Subjective Start: 04/06/18 14:56 Freq: Status: Active Protocol: Document 05/23/18 12:15 CLB (Rec: 05/23/18 15:50 CLB [email or web address]) OP-PT Subjective Patient Comments Patient Comments Pt stated her shoulder is feeling better. PT-OP-E Functional Tests Start: 04/06/18 14:56 Freq: Status: Active Protocol: Document 04/11/18 11:00 SAK (Rec: 04/12/18 10:30 [facility] [id number]) Functional Tests Apley's Scratch Test Action 1: The subject is instructed to touch the opposite shoulder with his/her hand. This motion checks Glenohumeral adduction, internal rotation , horizontal adduction and scapular protraction Action 2: The subject is instructed to place his/her arm overhead and reach behind the neck to touch his/her upper back. This motion checks Glenohumeral abduction, external rotation and scapular upward rotation and elevation. Action 3: The subject puts his/her hand on the lower back and reaches upward as far as possible. This motion checks glenohumeral adduction, internal rotation and scapular retraction with downward rotation Action 1- Left front of shoulder Action 1- Right back of shoulder Action 2- Left unable Action 2- Right T2 Action 3- Left buttock Action 3- Right T7 PT-OP-K Range of Motion Start: 04/06/18 14:56 Freq: Status: Active Protocol: Document 04/11/18 11:00 SAK (Rec: 04/12/18 10:30 SAK [id number]) Cervical Spine Range of Motion Cervical Spine Active ROM Limitations Pain Comments moderately limited all motions Shoulder Goniometric Range of Motion Shoulder Measured in Degrees Left Shoulder ROM WFL No Flexion 85 Extension 5 Abduction 55 External Rotation at 45 degrees 20 Abduction Internal Rotation 15 Internal Rotation Behind Back (text) to buttock Right Shoulder ROM WFL Yes Shoulder ROM Limitations Shoulder ROM Limitations Pain Elbow/Forearm Range of Motion Elbow/Forearm Measured in Degrees Active Elbow/Forearm ROM WFL Yes PT-OP-M Strength Start: 04/06/18 14:56 Freq: Status: Active Protocol: Document 04/11/18 11:00 SAK (Rec: 04/12/18 12:01 SAK [id number]) Shoulder Strength Shoulder Manual Muscle Testing Left Reason Not Measured Pain Right Reason Not Measured WFL PT-OP-S Aquatic Treatment Start: 04/06/18 14:56 Freq: Status: Active Protocol: Document 05/23/18 12:15 CLB (Rec: 05/23/18 15:50 CLB [email or web address]) Aquatics Treatment Pool Entry/Exit Pool Entry/Exit Method Stairs Assistance Independent Water Walking [place] March Water Level Chest Level Walking Equipment Resistance Fins Marching Water Level Chest Level Walking Equipment Resistance Fins Comments with gentle breastroke UE's Sideways Water Level Chest Level Walking Equipment Resistance Fins Comments with gentle shoulder ab/ad Forwards Water Level Chest Level Walking Equipment Resistance Fins Comments with gentle breastroke UE's Lower Extremity Exercises 5 Details Heel/toe Body Position Standing Water Level Chest Level Equipment Resistance Fins Reps/Duration x 15 reps 4 Details Squats Body Position Standing Water Level Chest Level Equipment Resistance Fins Reps/Duration x 15 reps 3 Details Hip flexio/extension Body Position Standing Water Level Chest Level Equipment Resistance Fins 2 Details Hip Abduction Body Position Standing Water Level Chest Level Equipment Resistance Fins Upper Extremity Exercises 6 Details scap squeeze Body Position Standing Water Level Neck Level Reps/Duration 10x 5 Details shoulder flex/ext Body Position Standing Water Level Neck Level Equipment open paddle Reps/Duration 10x 2 Details shoulder hor ab/ad Body Position Standing Water Level Neck Level Equipment open paddle Reps/Duration 10x [place] Activities [place] Activities Bicycle Other Activities gentle UE use as tolerated Equipment noodle Duration 15 PT-OP-T Assessment and Plan Start: 04/06/18 14:56 Freq: Status: Active Protocol: Document 05/23/18 12:15 CLB (Rec: 05/23/18 15:50 CLB [email or web address]) Physical Therapy Assessment Assessment Summary Assessment Pt tolerated therapy well with cues for posture and compensation of UE. Physical Therapy Plan Frequency and Duration Frequency of Treatment 1x/Week Duration of Treatment 45 Next Visit Focus/Plan Next Visit Plan Continue PT to address left shoulder pain and dysfunction with aquatic exercise and manual techniques
--- NOTE | 2018-05-27 16:21 | PT.OTN ---
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) Difficulty in walking, not elsewhere classified (05/27/18) Physical Therapy Treatment Note PT-OP-A Visit Information Start: 04/06/18 14:56 Freq: Status: Active Protocol: Document 05/27/18 12:30 TMS (Rec: 05/27/18 16:21 TMS [email or web address]) Out-Patient Physical Therapy Visit Information Visit Information Visit Type Treatment Note Visit Start Time 11:45 Visit Stop Time 12:30 Total Visit Minutes 45 Visit Number 25 Number of TRAVEL REGISTERED NURSE NICU Visits 5 PT-OP-C Subjective Start: 04/06/18 14:56 Freq: Status: Active Protocol: Document 05/27/18 12:30 TMS (Rec: 05/27/18 16:21 TMS [email or web address]) OP-PT Subjective Patient Comments Patient Comments Pt. states this is her last visit, has a new referral for her shoulder and wrists. Keeps forgetting to call and make an appointment. PT-OP-E Functional Tests Start: 04/06/18 14:56 Freq: Status: Active Protocol: Document 04/11/18 11:00 SAK (Rec: 04/12/18 10:30 [facility] [id number]) Functional Tests Apley's Scratch Test Action 1: The subject is instructed to touch the opposite shoulder with his/her hand. This motion checks Glenohumeral adduction, internal rotation , horizontal adduction and scapular protraction Action 2: The subject is instructed to place his/her arm overhead and reach behind the neck to touch his/her upper back. This motion checks Glenohumeral abduction, external rotation and scapular upward rotation and elevation. Action 3: The subject puts his/her hand on the lower back and reaches upward as far as possible. This motion checks glenohumeral adduction, internal rotation and scapular retraction with downward rotation Action 1- Left front of shoulder Action 1- Right back of shoulder Action 2- Left unable Action 2- Right T2 Action 3- Left buttock Action 3- Right T7 PT-OP-K Range of Motion Start: 04/06/18 14:56 Freq: Status: Active Protocol: Document 04/11/18 11:00 SAK (Rec: 04/12/18 10:30 SAK [id number]) Cervical Spine Range of Motion Cervical Spine Active ROM Limitations Pain Comments moderately limited all motions Shoulder Goniometric Range of Motion Shoulder Measured in Degrees Left Shoulder ROM WFL No Flexion 85 Extension 5 Abduction 55 External Rotation at 45 degrees 20 Abduction Internal Rotation 15 Internal Rotation Behind Back (text) to buttock Right Shoulder ROM WFL Yes Shoulder ROM Limitations Shoulder ROM Limitations Pain Elbow/Forearm Range of Motion Elbow/Forearm Measured in Degrees Active Elbow/Forearm ROM WFL Yes PT-OP-M Strength Start: 04/06/18 14:56 Freq: Status: Active Protocol: Document 04/11/18 11:00 SAK (Rec: 04/12/18 12:01 SAK [id number]) Shoulder Strength Shoulder Manual Muscle Testing Left Reason Not Measured Pain Right Reason Not Measured WFL PT-OP-S Aquatic Treatment Start: 04/06/18 14:56 Freq: Status: Active Protocol: Document 05/27/18 12:30 TMS (Rec: 05/27/18 16:21 TMS [email or web address]) Aquatics Treatment Pool Entry/Exit Pool Entry/Exit Method Stairs Assistance Independent Water Walking [place] March Water Level Chest Level Walking Equipment Resistance Fins Backwards Water Level Chest Level Walking Equipment Resistance Fins Comments with gentle reverse breastroke UE's Marching Water Level Chest Level Walking Equipment Resistance Fins Comments with gentle breastroke UE's Sideways Water Level Chest Level Walking Equipment Resistance Fins Comments with gentle shoulder ab/ad Lower Extremity Exercises 5 Details Heel/toe Body Position Standing Water Level Chest Level Equipment Resistance Fins Reps/Duration x 15 reps 4 Details Squats Body Position Standing Water Level Chest Level Equipment Resistance Fins Reps/Duration x 15 reps 3 Details Hip flexio/extension Body Position Standing Water Level Chest Level Equipment Resistance Fins 2 Details Hip Abduction Body Position Standing Water Level Chest Level Equipment Resistance Fins Upper Extremity Exercises 6 Details scap squeeze Body Position Standing Water Level Neck Level Reps/Duration 10x 4 Details shoulder IR/ER Water Level Chest Level Reps/Duration 10x 3 Details UE circles Water Level Chest Level Reps/Duration 10x 1 Details Shoulder shrugs/rolls Body Position Standing Reps/Duration 10x [place] Activities [place] Activities Bicycle Other Activities gentle UE use as tolerated Equipment noodle Duration 15 minutes PT-OP-T Assessment and Plan Start: 04/06/18 14:56 Freq: Status: Active Protocol: Document 05/27/18 12:30 TMS (Rec: 05/27/18 16:21 TMS [email or web address]) Physical Therapy Assessment Assessment Summary Assessment Pt. complained of left shoulder pain with shoulder circles, reminded to keep ROM within tolerance. Encouraged pt. to call and make appointment to continue with left shoulder and wrist therapy. Physical Therapy Plan Next Visit Focus/Plan Next Visit Plan Pt. to call and schedule appointment for bilateral wrist and continue with left shoulder rehab.
--- NOTE | 2018-09-01 08:36 | PT.OPDS ---
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) Difficulty in walking, not elsewhere classified (05/27/18) Provider Visit Care Team Role Provider Type Rachel Barajas DO Family Provider Physician Primary Care Provider Specialty: Family Practice Address: [address] [place] [address], [id number] Email: [email or web address] Jurgen Howard DPM Attending Provider Non-Staff Specialty: Podiatry Address: [address] [place] [address], [phone] Email: Visit Number Visit Number 25 Discharge Summary PT-OP-C Subjective Start: 04/06/18 14:56 Freq: Status: Active Protocol: Document 05/27/18 12:30 TMS (Rec: 05/27/18 16:21 TMS [email or web address]) OP-PT Subjective Patient Comments Patient Comments Pt. states this is her last visit, has a new referral for her shoulder and wrists. Keeps forgetting to call and make an appointment. PT-OP-E Functional Tests Start: 04/06/18 14:56 Freq: Status: Active Protocol: Document 04/11/18 11:00 SAK (Rec: 04/12/18 10:30 SAK [id number]) Functional Tests Apley's Scratch Test Action 1: The subject is instructed to touch the opposite shoulder with his/her hand. This motion checks Glenohumeral adduction, internal rotation , horizontal adduction and scapular protraction Action 2: The subject is instructed to place his/her arm overhead and reach behind the neck to touch his/her upper back. This motion checks Glenohumeral abduction, external rotation and scapular upward rotation and elevation. Action 3: The subject puts his/her hand on the lower back and reaches upward as far as possible. This motion checks glenohumeral adduction, internal rotation and scapular retraction with downward rotation Action 1- Left front of shoulder Action 1- Right back of shoulder Action 2- Left unable Action 2- Right T2 Action 3- Left buttock Action 3- Right T7 PT-OP-K Range of Motion Start: 04/06/18 14:56 Freq: Status: Active Protocol: Document 04/11/18 11:00 [facility] (Rec: 04/12/18 10:30 [facility] [id number]) Cervical Spine Range of Motion Cervical Spine Active ROM Limitations Pain Comments moderately limited all motions Shoulder Goniometric Range of Motion Shoulder Measured in Degrees Left Shoulder ROM WFL No Flexion 85 Extension 5 Abduction 55 External Rotation at 45 degrees 20 Abduction Internal Rotation 15 Internal Rotation Behind Back (text) to buttock Right Shoulder ROM WFL Yes Shoulder ROM Limitations Shoulder ROM Limitations Pain Elbow/Forearm Range of Motion Elbow/Forearm Measured in Degrees Active Elbow/Forearm ROM WFL Yes PT-OP-M Strength Start: 04/06/18 14:56 Freq: Status: Active Protocol: Document 04/11/18 11:00 [facility] (Rec: 04/12/18 12:01 [facility] [id number]) Shoulder Strength Shoulder Manual Muscle Testing Left Reason Not Measured Pain Right Reason Not Measured WFL PT-OP-T Assessment and Plan Start: 04/06/18 14:56 Freq: Status: Active Protocol: Document 09/01/18 08:34 [facility] (Rec: 09/01/18 08:36 [facility] [id number]) Physical Therapy Plan Discharge Physical Therapy Discharge Reasons Patient Request Discharge Comments Patient requested discharge at this time due to schedule difficulties, requested HEP for shoulders; sent today. Unable to do formal reassessment due to phone request, no final appointment. Patient may benefit from PT in the future when her schedule allows.
== END 2018-11-11 09:46 ==
LOC: PHYS 11:45
PROVIDERS: Family Provider Family Medicine; PCP Family Medicine; Visit Provider Podiatrist Foot & Ankle Surgery
DX: M72.2 Plantar fascial fibromatosis (principal); R26.2 Difficulty in walking, not elsewhere classified; M25.60 Stiffness of unspecified joint, not elsewhere classified
CPT/HCPCS: 97113

== ENCOUNTER 2018-06-23 11:50 | Day surgery (SDC) | payer OTHER, MEDICAID, SELFPAY ==
[2018-06-20 08:35] VITALS: BMI 25.9
[2018-06-23] VITALS (7 sets, daily range): BP systolic 105–119; BP diastolic 69–84; PULSE 89–103; RESP 13–21; TEMP 36.2–36.9; O2SAT 93–97; BMI 26.1
--- NOTE | 2018-06-23 13:19 | PM.PREOP ---
Pre-operative Note Interval Note Pre-op Check: Yes History & Physical Reviewed by Physician Changes: No
--- NOTE | 2018-06-23 13:39 | PM.OP.1 ---
Operative Date/Time/Diagnoses Date of procedure: 06/23/18 Time of procedure: 13:39 Pre-op diagnosis: Right carpal tunnel Post-op diagnosis: same Procedure & Clinicians Procedure: Right carpal tunnel release Same procedure as scheduled: Yes Indications: Right carpal tunnel Surgeon: Gilberto Dunn Click Yes if Unassisted: Yes Anesthesia Type: General Operative Notes Findings: Compression of the median nerve at the carpal tunnel. Closure Type: primary Specimen(s): none sent Estimated Blood Loss (mL): 0 Blood products transfused: none Tourniquet time (min): 10 Procedure in detail: On date of service, the patient was met in the holding area. Patients operative site was signed and witnessed by the OR staff. The surgery was once again discussed with the patient, and any remaining questions they had were answered fully. Patient was taken back to the operating theater and placed on the operating table in a supine position. Great care was taken to ensure that all bony prominences were carefully padded. A well-padded tourniquet was placed up along the upper extremity. A timeout was performed to verify patient's name, procedure, and operative site. The arm was then prepped and draped in the normal sterile fashion. A 15 blade was used to incise through skin In the center of the palm. Pickups and tenotomy scissors were used to dissect down until the palmar fascia was visualized. The palmar fascia was then sharply incised using a 15 blade. This gave us good visualization of the carpal ligament. A small opening was made into the carpal ligament, and a curved hemostat was placed into that opening. A 15 blade was then used to sharply incise the carpal ligament with the structures beneath being protected by the hemostat. Pickups and Metzenbaum scissors were used to complete the decompression both distally and proximally. This provided a complete decompression of the median nerve. The wound was then irrigated and closed with nylon. The hand was then cleaned, dried, and dressed. Patient was taken to the PACU in stable condition. Complications: none Condition: stable Disposition: PACU
[2018-06-23] MEDS: CEFAZOLIN 2 GM/100 ML FROZ.PIGGY IV (13:45)
[2018-06-23] MEDS: BUPIVACAINE 0.5% W/ EPI (PF) VIAL 30 ML INJ (14:00)
--- NOTE | 2018-06-23 14:47 | SUR.PHASEII ---
PT ARRIVED TO OPD IN STABLE CONDITION, VSS. PT SITTING UP IN BED WITH EYES CLOSED, EASILY AROUSABLE TO VOICE. IV SITE CLEAR AND INFUSING WITHOUT DIFFICULTLY. DRSG TO SURGICAL HAND C/D/I. PT REPORTS DULL SENSTATION RELATED TO LOCAL DONE BY DR. WILLSON, +STRENGTH, CAP REFILL WNL. PT DENIES ANY PAIN/DISCOMFORT OR NAUSEA. PT TOLERATING ORAL INTAKE WITHOUT ANY DIFFICULTLY. PT AWAITING ARRIVAL OF AT THIS TIME. BED IN LOWEST POSITION AND CALL LIGHT GIVEN TO PT. PT APPEARS COMFORTABLE AT THIS TIME.
--- NOTE | 2018-06-23 15:09 | SUR.PHASEII ---
IV DC'D AND INTACT. PT TOLERATED WELL.
== END 2018-06-23 15:18 | disposition home or self-care (01) ==
PROVIDERS: Family Provider Family Medicine; PCP Family Medicine; Visit Provider Orthopaedic Surgery
PROC: (CPT 64721; principal; 2018-06-23 13:00)
DX: G56.01 Carpal tunnel syndrome, right upper limb (principal); E11.9 Type 2 diabetes mellitus without complications; I10 Essential (primary) hypertension; M79.7 Fibromyalgia; J45.909 Unspecified asthma, uncomplicated; Z79.84 Long term (current) use of oral hypoglycemic drugs
CPT/HCPCS: 64721; J0690; J2405; J2704; J3010

== ENCOUNTER → 2018-08-11 16:45 | Outpatient (CLI) | payer OTHER, MEDICAID, SELFPAY ==
[2018-08-11 18:34] LABS: Alanine Aminotransferase 66 IU/L (9-52); Albumin 4.7 g/dL (3.5-5.0); Albumin Globulin Ratio 1.3 (1.0-2.8); Alkaline Phosphatase 114 U/L (38-126); Aspartate Aminotransferase 50 IU/L (14-36); Bilirubin Total 0.2 mg/dL (0.2-1.3); Globulin 3.5 g/dL (1.7-4.1); HEMOLYSIS < 15 (0-50); Total Protein 8.2 g/dL (6.3-8.2)
[2018-08-11 18:37] LABS: Hemoglobin A1C% w Est Avg Glu 8.4 % (4.0-6.0)
[2018-08-11 18:48] LABS: Free T4, Direct Thyroxine 0.78 ng/dL (0.78-2.19)
[2018-08-11 19:02] LABS: Thyroid Stimulating Hormone 0.16 uIU/mL (0.47-4.68)
== END ==
PROVIDERS: Family Provider Family Medicine; PCP Family Medicine; Visit Provider Internal Medicine Endocrinology, Diabetes & Metabolism
DX: E11.9 Type 2 diabetes mellitus without complications (principal); R74.8 Abnormal levels of other serum enzymes
CPT/HCPCS: 36415; 80076; 83036; 84439; 84443

== ENCOUNTER → 2018-10-25 14:39 | Outpatient (CLI) | payer OTHER, MEDICAID, SELFPAY ==
--- NOTE | 2018-10-25 14:42 | DI.RAD.S_ITS ---
PROCEDURE: XR CERVICAL SPINE 2V OR 3V INDICATIONS: neck pain TECHNIQUE: 5 view(s) of the cervical spine were acquired. COMPARISON: None. FINDINGS: Bones: No fractures or dislocations to the C7 level. The lateral masses of C1 appear intact on the odontoid view. No suspicious bony lesions. Straightening of the normal cervical lordosis and mild narrowing of the C4-C5 disc space. Mild diffuse facet arthropathy. Soft tissues: No prevertebral soft tissue swelling. Scant bilateral carotid calcifications. IMPRESSION: Straightening of the normal cervical lordosis and mild midcervical degeneration most pronounced at C4-C5. Dictated by: Ramin Woods M.D. on 10/25/2018 at 16:09 Approved by: Ramin Woods M.D. on 10/25/2018 at 16:11
== END ==
PROVIDERS: PCP Family Medicine; Visit Provider Family Medicine
DX: M50.321 Other cervical disc degeneration at C4-C5 level (principal); M79.7 Fibromyalgia
CPT/HCPCS: 72040

== ENCOUNTER → 2019-02-06 14:51 | Outpatient (CLI) | payer OTHER, MEDICAID, SELFPAY ==
[2019-02-06 16:25] LABS: Hemoglobin A1C% w Est Avg Glu 8.5 % (4.0-6.0)
[2019-02-06 16:45] LABS: Alanine Aminotransferase 50 IU/L (9-52); Albumin Globulin Ratio 1.3 (1.0-2.8); Alkaline Phosphatase 114 U/L (38-126); Aspartate Aminotransferase 39 IU/L (14-36); Bilirubin Total 0.4 mg/dL (0.2-1.3); Blood Urea Nitrogen 19 mg/dL (7-17); Carbon Dioxide 25 mmol/L (22-32); Chloride 99 mmol/L (98-107); Estimated Glomerular Filt Rate > 60.0 mL/min (>60); Globulin 3.9 g/dL (1.7-4.1); Glucose 97 mg/dL (70-100); HEMOLYSIS < 15 (0-50); Potassium 4.3 mmol/L (3.4-5.1); Sodium 141 mmol/L (137-145); Total Protein 8.9 g/dL (6.3-8.2)
[2019-02-06 16:48] LABS: Microalbumi Creatinin Ratio Ur 396.4 ug/mg CR (<30); Microalbumin Urine Random 11.1 mg/dL (0-1.6)
[2019-02-06 17:14] LABS: Thyroid Stimulating Hormone 0.05 uIU/mL (0.47-4.68)
== END ==
PROVIDERS: Family Provider Family Medicine; PCP Family Medicine; Visit Provider Internal Medicine Endocrinology, Diabetes & Metabolism
DX: E11.9 Type 2 diabetes mellitus without complications (principal)
CPT/HCPCS: 36415; 80053; 82043; 82570; 83036; 84443

== ENCOUNTER → 2019-02-15 15:48 | Outpatient (CLI) | payer OTHER, MEDICAID, SELFPAY ==
[2019-02-15 16:00] LABS: Bacteria Urine None Seen; RBC Urine None Seen (0-5/HPF)
[2019-02-15 17:11] LABS: Free T4, Direct Thyroxine 0.78 ng/dL (0.78-2.19)
[2019-02-15 17:15] LABS: Appearance Urine UA CLEAR; Bilirubin Urine UA NEGATIVE (NEGATIVE); Color Urine UA YELLOW; Glucose Urine UA 2+ g/dL (Negative); Ketones Urine UA NEGATIVE (NEGATIVE); Leukocyte Esterase Urine UA NEGATIVE (NEGATIVE); Nitrite Urine UA NEGATIVE (Negative); Occult Blood Urine UA NEGATIVE (Negative); Protein Urine UA NEGATIVE (Negative); Specific Gravity Urine UA 1.015 (1.000-1.035); Urobilinogen Urine UA 0.2 E.U./dL (0.2); pH Urine UA 6.5 (4.5-8.0)
[2019-02-15 17:25] LABS: Thyroid Stimulating Hormone 1.44 uIU/mL (0.47-4.68)
[2019-02-15 17:28] LABS: Culture Indicated Urine Cult Not Indicated; Squamous Epithelial Cell Urine 0-1 /HPF; WBC Urine 0-1/HPF (0-5/HPF)
[2019-02-15 18:15] LABS: Creatinine Urine Random 34.3 mg/dL
[2019-02-15 18:18] LABS: Microalbumi Creatinin Ratio Ur 87.4 ug/mg CR (<30)
[2019-02-17 13:34] LABS: Fructosamine 313 umol/L (190-270)
== END ==
PROVIDERS: PCP Family Medicine; Visit Provider Internal Medicine Endocrinology, Diabetes & Metabolism
DX: E11.9 Type 2 diabetes mellitus without complications (principal)
CPT/HCPCS: 36415; 81001; 82043; 82570; 82985; 84439; 84443

== ENCOUNTER → 2019-02-17 11:11 | Outpatient (CLI) | payer OTHER, MEDICAID, SELFPAY ==
--- NOTE | 2019-02-17 | DI.MG.S_ITS ---
BILATERAL DIGITAL SCREENING MAMMOGRAM 3D/2D WITH CAD: 02/17/2019 CLINICAL: Routine screening. Family history of breast cancer. Comparison is made to exams dated: 01/13/2018 mammogram, 12/18/2016 mammogram - , and 08/13/2015 mammogram - [facility]. There are scattered fibroglandular elements in both breasts. Current study was also evaluated with a Computer Aided Detection (CAD) system. No significant masses, calcifications, or other findings are seen in either breast. There has been no significant interval change. IMPRESSION: NEGATIVE There is no mammographic evidence of malignancy. A 1 year screening mammogram is recommended. This exam was interpreted at Station ID: [id number]. NOTE: For mammograms, a report in lay terms will be sent to the patient. Approximately 15% of breast malignancies will not be visualized mammographically. In the management of a palpable breast mass, a negative mammogram must not discourage biopsy of a clinically suspicious lesion. Electronically Signed By: Jono de la rosa/rashawn:02/17/2019 18:41:56 letter sent: Normal Exam ACR BI-RADS Category 1: Negative 3341F
== END ==
PROVIDERS: PCP Family Medicine; Visit Provider Family Medicine
DX: Z12.31 Encounter for screening mammogram for malignant neoplasm of breast (principal); Z80.3 Family history of malignant neoplasm of breast
CPT/HCPCS: 77063; 77067

== ENCOUNTER → 2019-03-07 15:42 | Outpatient (CLI) | payer OTHER, MEDICAID, SELFPAY ==
[2019-03-07 16:28] LABS: Add Manual Diff / Slide Review NO; Basophils Absolute Auto 0 /uL (0-100); Basophils Percent Auto 0.1 % (0-2); Eosinophils Absolute Auto 0 /uL (0-450); Hematocrit 41.7 % (36-46); Hemoglobin 13.9 g/dL (12.0-16.0); Lymphocytes Absolute Auto 4600 /uL (1100-4500); Lymphocytes Percent Auto 50.5 % (25-40); Mean Corpuscular HGB Conc 33.4 % (30-36); Mean Corpuscular Volume 84.1 fL (80-100); Monocytes Absolute Auto 600 /uL (0-900); Monocytes Percent Auto 6.1 % (3-14); Neutrophils Absolute Auto 4000 /uL (1500-7000); Neutrophils Percent Auto 43.3 % (50-75); Platelet Count 306 X10^3/uL (150-400); Red Blood Cell Count 4.96 X10^6/uL (4.0-5.2); Red Cell Distribution Width 13.5 % (11.6-14.8); White Blood Cell Count 9.2 X10^3/uL (4.5-11.0)
[2019-03-07 16:44] LABS: Erythrocyte Sedimentation Rate 23 MM/HR (0-20)
[2019-03-07 16:54] LABS: C-Reactive Protein Quant 0.8 mg/dL (<1.0)
[2019-03-07 17:00] LABS: Rheumatoid Factor < 8.6 IU/mL (<12.0)
== END ==
PROVIDERS: PCP Family Medicine; Visit Provider Family Medicine
DX: M25.40 Effusion, unspecified joint (principal)
CPT/HCPCS: 36415; 85025; 85651; 86140; 86430

== ENCOUNTER 2019-04-01 08:25 | Emergency (ER) | payer OTHER, MEDICAID, SELFPAY ==
[2019-04-01 08:40] VITALS: BP 119/77; PULSE 70; RESP 12; TEMP 36.6; O2SAT 98
[2019-04-01 08:47] LABS: Bacteria Urine None Seen
--- NOTE | 2019-04-01 08:48 | ED_ITS ---
HPI - Female Genitourinary General Chief complaint: Urogenital-Female Stated complaint: states possible UTI; difficulty/pain when peeing Time Seen by Provider: 04/01/19 08:43 Source: patient Mode of arrival: ambulatory Limitations: no limitations History of Present Illness HPI Narrative: Patient is a 58-year-old female presents with painful frequent urination. She says started last evening. She has no nausea of fever or flank pain. MD Complaint: UTI Related Data Home Medications Medication Instructions Recorded Confirmed omeprazole 20 mg PO DAILY PRN 06/20/18 01/24/19 azelastine 137 mcg-fluticasone 50 1 spray NASAL BID 03/07/19 03/07/19 mcg spray,susp-NaCl 0.9% spray nasal dapagliflozin 5 mg tablet 5 mg PO DAILY #0 03/07/19 03/07/19 glipizide 10 mg tablet 10 mg PO BID 03/07/19 03/07/19 metformin 1,000 mg tablet 1,000 mg PO BID 03/07/19 03/07/19 mometasone-formoterol HFA 200 2 puff INHALATION BID 03/07/19 03/07/19 mcg-5 mcg/actuation aerosol inhaler montelukast 10 mg tablet 10 mg PO QPM 03/07/19 03/07/19 reslizumab 10 mg/mL intravenous 10 mg IV QMONTH ml 03/07/19 03/07/19 solution tiotropium bromide 18 mcg capsule 1 cap INHALATION DAILY #0 03/07/19 03/07/19 with inhalation device inhalation Previous Rx's Medication Instructions Recorded Glucose: Home Monitor ea Q DAY #1 01/21/17 Glucose: Test Strips str Q DAY #30 07/12/17 Lancet: Device ea #100 09/01/17 fluticasone propionate [Flonase 1 spray INTRANASAL QDAY #1 bot 09/03/17 Allergy Relief] simvastatin 10 mg tablet 10 mg PO HS #90 tab 10/07/18 duloxetine 30 mg capsule,delayed 30 mg PO BID #180 cap 12/02/18 release milnacipran 12.5 mg (5)-25 See Rx Instructions PO PER PKG DIR 01/24/19 mg(8)-50mg(42) tablets in a dose #55 each pack lisinopril 5 mg tablet 5 mg PO DAILY #90 tab 02/17/19 gabapentin 300 mg capsule See Rx Instructions PO TID #30 cap 03/13/19 sulfamethoxazole-trimethoprim 1 tab PO BID 5 Days #10 tab 04/01/19 [Bactrim DS] Allergies Allergy/AdvReac Type Severity Reaction Status Date / Time No Known Drug Allergies Allergy Verified 01/24/19 14:13 Review of Systems Review of Systems GENERAL: Denies chills,fever HEENT: Denies throat pain RESPIRATORY: Denies dyspnea, cough, wheezing CARDIOVASCULAR: Denies chest pain, palpitations GASTROINTESTINAL: Denies nausea, vomiting : See HPI MUSCULOSKELETAL: Denies extremity pain, injury SKIN: No rash, no laceration, no pruritus NEUROLOGIC: Denies weakness, dizziness, headache, numbness 8 point review of systems is negative except for those stated above and HPI PFSH Medical History Anxiety (Chronic 2005) Asthma (Chronic 2004) Chronic headaches (Chronic) Depression (Chronic) Diabetes mellitus (Chronic 2013) Diabetic neuropathy (Chronic 2013) Dyslipidemia (Chronic) Elevated liver enzymes (Chronic) Fibromyalgia (Chronic 09/05/15) Foot pain (Chronic 2014) GERD (gastroesophageal reflux disease) (Chronic) Hypercholesterolemia (Chronic) Hypertension (Chronic) Obesity (Chronic) Plantar fasciitis (Chronic) Polyarthritis (Chronic 2014) Rheumatoid arthritis (Chronic) Seasonal allergies (Chronic 2005) Shoulder pain (Chronic) Carpal tunnel syndrome of right wrist (Resolved) History of UTI (Resolved 05/14/18) Surgical History History of carpal tunnel release (Resolved 06/23/18) Status post breast biopsy (Resolved 1974) Family History Father Liver cancer Mother Heart disease Hypertension Family/Other Diabetes mellitus Other Breast cancer Social History marital status: unknown (engaged) household members: significant other lives independently: Yes occupational status: unemployed and disabled Smoking Status: Never smoker alcohol intake: never substance use type: does not use Family History Father Liver cancer Mother Heart disease Hypertension Family/Other Diabetes mellitus Other Breast cancer Social History marital status: unknown (engaged) household members: significant other lives independently: Yes occupational status: unemployed and disabled Smoking Status: Never smoker alcohol intake: never substance use type: does not use Exam Initial Vital Signs Initial Vital Signs: Vital Signs Temperature 97.8 F 04/01/19 08:40 Pulse Rate 70 04/01/19 08:40 Respiratory Rate 12 04/01/19 08:40 Blood Pressure 119/77 04/01/19 08:40 Pulse Oximetry 98 04/01/19 08:40 GENERAL: Well-appearing, well-nourished and in no acute distress. HEENT: Head atraumatic,EOMI, pupils reactive CARDIOVASCULAR: Regular rate and rhythm without murmurs, rubs or gallops. RESPIRATORY: Breath sounds equal bilaterally, no wheezes rales or rhonchi. ABDOMEN: Soft, nontender. Normoactive bowel sounds all 4 quadrants. No guarding or rebound. : No CVA tenderness, mild suprapubic EXTREMITIES: Normal range of motion, no clubbing or edema. Neurovascularly intact NEUROLOGICAL: Alert and oriented x4.Normal gait and speech. SKIN: Warm, dry, no laceration, no petechiae, no rashes or lesions. Course Orders Ordered: ED Orders 04/01/19 08:42 Urine Culture Stat Urine Microscopic Stat 04/01/19 09:03 Urine Microscopic Stat Vital Signs - 8 hr 04/01/19 08:40 Temperature 97.8 F Pulse Rate 70 Respiratory Rate 12 Blood Pressure 119/77 Pulse Oximetry 98 MDM - Female Genitourinary Lab Data Lab Results 04/01/19 Range/Units 08:42 Urine RBC 0-1/hpf (0-5/HPF) Urine WBC 30-100/hpf H (0-5/HPF) Ur Squamous Epith Cells 0-1 /hpf (0-5/HPF) Urine Bacteria None seen (None) Ur Culture Indicated? Specimen cultured Urine Dip Bedside Urine Glucose 1000 mg/dl Bedside Urine Bilirubin - Negative Bedside Urine Ketone - Negative Urine Specific [facility] 1.025 Bedside Urine Occult Blood ++ Bedside Urine pH 6.0 Bedside Urine Protein +/- 15 Bedside Urine Leukocytes ++ 125 Esterase Discharge Plan Departure Patient Disposition: Home Clinical Impression: Acute UTI Discharge Date/Time: 04/01/19 09:10 Interventions: ED Discharge Assessment Last Done: 04/01/19 09:07 Instructions: DI for Urinary Tract Infection (UTI) Activity Restrictions/Additional Instructions: *You have been diagnosed with bladder infection, UTI *What to do: Increase fluid intake *Continue to take medications as directed Bactrim 1 tablet twice daily for 5 days By radium 1 tablet 3 times a day only if needed for burning and pain, this will turn everything orange *Follow up with your primary care provider in 2-3 days *Return to ER if you should have fever, inability to tolerate antibiotics or any new, worsening or concerning symptoms Prescriptions: New sulfamethoxazole-trimethoprim [Bactrim DS] 800-160 mg tablet 1 tab PO BID 5 Days Qty: 10 RF: 0 No Action Glucose: Home Monitor Q DAY Qty: 1 RF: 0 Glucose: Test Strips Q DAY Qty: 30 RF: 9 Lancet: Device Qty: 100 RF: 12 fluticasone propionate [Flonase Allergy Relief] 9.9 ML spray,suspension 1 spray Intranasal QDAY Qty: 1 RF: 0 simvastatin 10 mg tablet 10 mg PO HS Qty: 90 RF: 2 duloxetine 30 mg capsule,delayed release(DR/EC) 30 mg PO BID Qty: 180 RF: 1 lisinopril 5 mg tablet 5 mg PO DAILY Qty: 90 RF: 3 gabapentin 300 mg capsule See Rx Instructions PO TID Qty: 30 RF: 0 Savella 12.5 mg (5)-25 mg(8)-50 mg(42) tablets,dose pack See Rx Instructions PO PER PKG DIR Qty: 55 RF: 0 Farxiga 5 mg tablet 5 mg PO DAILY Qty: 0 RF: 0 glipizide 10 mg tablet 10 mg PO BID RF: 0 metformin 1,000 mg tablet 1,000 mg PO BID RF: 0 Dulera 200-5 mcg/actuation HFA aerosol inhaler 2 puff INHALATION BID RF: 0 montelukast [Singulair] 10 mg tablet 10 mg PO QPM RF: 0 [id number]-oiszoozuqzj-UbDi-NaHCO3 137 mcg-50 mcg- 0.9 % kit,spray suspension and spray 1 spray NASAL BID RF: 0 reslizumab 10 mg/mL solution 10 mg IV QMONTH RF: 0 Spiriva with HandiHaler 18 mcg capsule, w/inhalation device 1 cap Inhalation DAILY Qty: 0 RF: 0 omeprazole 20 MG capsule,delayed release(DR/EC) 20 mg PO DAILY PRN (Reason: Heartburn) RF: 0 Referrals: Rachel Barajas DO [Primary Care Provider] -
--- NOTE | 2019-04-01 08:56 | PC.NURSE ---
Addendum entered by Magda Huntley R.N. 04/01/19 09:06: charted on wrong pt, delete. Original Note: constipation for 8 days.
--- NOTE | 2019-04-01 08:57 | PC.NURSE ---
Addendum entered by Magda Huntley R.N. 04/01/19 09:05: charted on wrong pt. delete. Original Note: with 2 person assist.
[2019-04-01 08:59] LABS: Culture Indicated Urine Specimen Cultured; RBC Urine 0-1/HPF (0-5/HPF); Squamous Epithelial Cell Urine 0-1 /HPF (0-5/HPF); WBC Urine 30-100/HPF (0-5/HPF)
== END 2019-04-01 09:10 | disposition home or self-care (01) ==
PROVIDERS: Emergency Provider Emergency Medicine; PCP Family Medicine
DX: N39.0 Urinary tract infection, site not specified (principal)
CPT/HCPCS: 81003; 81015; 87086; 99283

== ENCOUNTER → 2019-05-12 11:08 | Outpatient (CLI) | payer OTHER, MEDICAID, SELFPAY ==
[2019-05-12 12:12] LABS: Alanine Aminotransferase 49 IU/L (9-52); Cholesterol 189 mg/dL (140-199); HDL Cholesterol 56 mg/dL (40-60); LDL Cholesterol Calculated 83 mg/dL (<100); Triglycerides 250 mg/dL (35-150)
== END ==
PROVIDERS: PCP Family Medicine; Visit Provider Internal Medicine Endocrinology, Diabetes & Metabolism
DX: E78.00 Pure hypercholesterolemia, unspecified (principal)
CPT/HCPCS: 36415; 80061; 84460

== ENCOUNTER → 2019-07-05 16:14 | Outpatient (CLI) | payer OTHER, MEDICAID, SELFPAY ==
[2019-07-05 17:43] LABS: Hemoglobin A1C% w Est Avg Glu 8.1 % (4.0-6.0)
[2019-07-07 15:08] LABS: Fructosamine 350 umol/L (190-270)
== END ==
PROVIDERS: Family Provider Family Medicine; PCP Family Medicine; Visit Provider Internal Medicine Endocrinology, Diabetes & Metabolism
DX: E11.29 Type 2 diabetes mellitus with other diabetic kidney complication (principal); R80.9 Proteinuria, unspecified
CPT/HCPCS: 36415; 82985; 83036

== ENCOUNTER → 2019-11-02 16:10 | Outpatient (CLI) | payer OTHER, MEDICAID, SELFPAY ==
[2019-11-02 17:23] LABS: Hemoglobin A1C% w Est Avg Glu 8.7 % (4.0-6.0)
== END ==
PROVIDERS: Family Provider Family Medicine; PCP Family Medicine; Visit Provider Internal Medicine Endocrinology, Diabetes & Metabolism
DX: E11.29 Type 2 diabetes mellitus with other diabetic kidney complication (principal); R80.9 Proteinuria, unspecified
CPT/HCPCS: 36415; 83036

== ENCOUNTER → 2020-02-05 12:27 | Outpatient (CLI) | payer OTHER, MEDICAID, SELFPAY ==
[2020-02-05 13:27] LABS: Hemoglobin A1C% w Est Avg Glu 8.4 % (4.0-6.0)
[2020-02-05 15:03] LABS: Creatinine Urine Random 58.6 mg/dL
[2020-02-05 15:06] LABS: Microalbumi Creatinin Ratio Ur 35.8 ug/mg CR (<30); Microalbumin Urine Random 2.1 mg/dL (0-1.6)
== END ==
PROVIDERS: Family Provider Family Medicine; PCP Family Medicine; Referring Provider Internal Medicine Endocrinology, Diabetes & Metabolism; Visit Provider Internal Medicine Endocrinology, Diabetes & Metabolism
DX: E11.29 Type 2 diabetes mellitus with other diabetic kidney complication (principal); R80.9 Proteinuria, unspecified
CPT/HCPCS: 36415; 82043; 82570; 83036

== ENCOUNTER → 2020-04-26 14:31 | Outpatient (CLI) | payer OTHER, MEDICAID, SELFPAY ==
--- NOTE | 2020-04-26 | DI.MG.S_ITS ---
BILATERAL DIGITAL SCREENING MAMMOGRAM 3D/2D WITH CAD: 04/26/2020 CLINICAL: Routine screening. Family history of breast cancer. Comparison is made to exams dated: 02/17/2019 mammogram, 01/13/2018 mammogram, 12/18/2016 mammogram - [facility], and 08/13/2015 mammogram - [facility]. There are scattered fibroglandular elements in both breasts. Current study was also evaluated with a Computer Aided Detection (CAD) system. There are benign calcifications in the left breast. No significant masses, calcifications, or other findings are seen in either breast. There has been no significant interval change. IMPRESSION: There is no mammographic evidence of malignancy. A 1 year screening mammogram is recommended. This exam was interpreted at Station ID: [id number]. NOTE: For mammograms, a report in lay terms will be sent to the patient. Approximately 15% of breast malignancies will not be visualized mammographically. In the management of a palpable breast mass, a negative mammogram must not discourage biopsy of a clinically suspicious lesion. Electronically Signed By: Seamus meng/rashawn:04/26/2020 15:54:16 letter sent: Normal Exam ACR BI-RADS Category 2: Benign Finding(s) 3342F
== END ==
PROVIDERS: Family Provider Family Medicine; PCP Family Medicine; Referring Provider Family Medicine; Visit Provider Family Medicine
DX: Z12.31 Encounter for screening mammogram for malignant neoplasm of breast (principal); Z80.3 Family history of malignant neoplasm of breast
CPT/HCPCS: 77063; 77067

== ENCOUNTER → 2020-07-15 10:11 | Outpatient (CLI) | payer OTHER, MEDICAID, SELFPAY ==
[2020-07-15 11:20] LABS: Hemoglobin A1C% w Est Avg Glu 9.2 % (4.0-6.0)
[2020-07-15 11:39] LABS: Alanine Aminotransferase 56 IU/L (<35); Albumin 4.6 g/dL (3.5-5.0); Albumin Globulin Ratio 1.1 (1.0-2.8); Alkaline Phosphatase 129 U/L (38-126); Aspartate Aminotransferase 39 IU/L (14-36); BUN Creatinine Ratio 36.2 (6-22); Bilirubin Total 0.6 mg/dL (0.2-1.3); Blood Urea Nitrogen 17 mg/dL (7-17); Calcium 9.2 mg/dL (8.4-10.2); Carbon Dioxide 25 mmol/L (22-32); Chloride 101 mmol/L (98-107); Cholesterol 195 mg/dL (140-199); Estimated Glomerular Filt Rate > 60.0 mL/min (>60); Globulin 4.1 g/dL (1.7-4.1); Glucose 243 mg/dL (70-100); HDL Cholesterol 61 mg/dL (40-60); HEMOLYSIS < 15 (0-50); LDL Cholesterol Calculated 68 mg/dL (<100); Potassium 4.2 mmol/L (3.4-5.1); Sodium 137 mmol/L (137-145); Total Protein 8.7 g/dL (6.3-8.2); Triglycerides 328 mg/dL (35-150)
== END ==
PROVIDERS: Family Provider Family Medicine; PCP Family Medicine; Referring Provider Internal Medicine; Visit Provider Internal Medicine
DX: E11.65 Type 2 diabetes mellitus with hyperglycemia (principal)
CPT/HCPCS: 36415; 80053; 80061; 83036